=== PATIENT | female | born 1960 | race Caucasian/White ===

== ENCOUNTER 2021-04-10 05:34 | Day surgery (SDC) | payer BC ==
[2021-04-09 11:42] LABS: BASOPHILS % (AUTO) 0.8 % (0.0-5.0); EOSINOPHILS % (AUTO) 2.5 % (0.0-8.0); HEMATOCRIT 44.5 % (36-48); LYMPHOCYTES % (AUTO) 36.8 % (21.0-51.0); MEAN CORPUSCULAR HEMOGLOBIN 29.9 pg (27.0-33.0); MEAN CORPUSCULAR HGB CONC 32.8 g/dL (32.0-36.0); MEAN CORPUSCULAR VOLUME 91.2 fL (79-99); MONOCYTES % (AUTO) 7.4 % (3.0-13.0); NEUTROPHILS % (AUTO) 52.1 % (40.0-77.0); PLATELET COUNT (AUTO) 177 K/uL (130-400); RED BLOOD CELL COUNT(AUTO) 4.88 MIL/uL (4.00-5.50); RED CELL DISTRIBUTION WIDTH 12.9 % (11.0-15.5); WHITE BLOOD COUNT (AUTO) 4.7 K/uL (4.8-10.8)
[2021-04-09 13:44] VITALS: BP 123/69
[2021-04-10] VITALS (19 sets, daily range): BP systolic 104–154; BP diastolic 58–89
[~2021-04-10] VITALS: Ht 162.6 cm; Wt 77.6 kg
[~2021-04-10 05:34] MED LIST: CYAN-52 PO; HYDR25TA PO; PANT40TA54 PO; URSO300C4 PO; VITAMIN D PO
[2021-04-10] MEDS ORDERED: LACTATED RINGERS 1000ML 1,000 ML IV ONE ×2 (06:58→08:53)
[2021-04-10] MEDS: CEFAZOLIN SODIUM 1 GM VIAL ONE ×2 (07:25→09:18)
[2021-04-10] MEDS ORDERED: KETAMINE 50MG/ML SYRINGE 50 MG/ML DISP.SYRIN IV ONE (08:33)
[2021-04-10] MEDS ORDERED: ROCURONIUM 10MG/1ML SYR 10 MG/ML ML ONE (08:35)
[2021-04-10] MEDS ORDERED: LIDOCAINE PF 100MG/5ML (2%) SYRINGE 5ML ONE (08:35)
[2021-04-10] MEDS ORDERED: PROPOFOL 10 MG/ML 20ML VIAL IV ONE (08:35)
[2021-04-10] MEDS ORDERED: MIDAZOLAM HCL 1 MG/ML 2ML VIAL ONE (08:58)
[2021-04-10] MEDS ORDERED: GLYCOPYRROLATE 1 MG/5 ML SYRINGE ONE (09:05)
[2021-04-10] MEDS ORDERED: SUCCINYLCHOLINE 200MG/10ML SYR ONE (09:06)
[2021-04-10] MEDS ORDERED: DEXAMETHASONE SOD PHOSPHATE 10MG/ML 1ML VIAL ONE ×2 (09:09→09:11)
[2021-04-10] MEDS ORDERED: ALBUTEROL INHALER 90MCG/INH IH ONE (10:14)
[2021-04-10] MEDS ORDERED: NEOSTIGMINE 5MG/5ML SYR IV ONE (10:46)
[2021-04-10] MEDS ORDERED: KETOROLAC 30MG VIAL (30MG/ML) ONE (10:50)
[2021-04-10] MEDS ORDERED: ONDANSETRON 4MG INJ ONE (11:02)
[2021-04-10] MEDS ORDERED: MEPERIDINE-PF 25 MG/ML SYG ONE (11:28)
[2021-04-10] MEDS ORDERED: IPRATROPIUM/ALBUTEROL SULFATE 3 ML SOLUTION IH ONE (11:38)
== END 2021-04-10 13:30 | disposition home or self-care (01) ==
LOC: DAH 05:34
PROVIDERS: ATTEND Obstetrics & Gynecology
DX: N95.0 Postmenopausal bleeding (principal); R10.2 Pelvic and perineal pain; N73.6 Female pelvic peritoneal adhesions (postinfective); D36.7 Benign neoplasm of other specified sites; N83.209 Unspecified ovarian cyst, unspecified side; R19.00 Intra-abdominal and pelvic swelling, mass and lump, unspecified site; K21.9 Gastro-esophageal reflux disease without esophagitis; Z87.891 Personal history of nicotine dependence; I10 Essential (primary) hypertension; Z88.1 Allergy status to other antibiotic agents; Z88.5 Allergy status to narcotic agent; Z88.8 Allergy status to other drugs, medicaments and biological substances; Z20.822 Contact with and (suspected) exposure to COVID-19
CPT/HCPCS: 36415; 58120; 58545; 85025; 86850; 86900; 86901; 87635; 94640; A4215 ×3; A4221; A4222; A4223; A4344; A4351; A4600; A4606 ×2; A4649 ×3; A4663; A6260; C1769 ×3; C9803; J0330; J0690; J1100 ×2; J1885; J2001; J2175; J2250; J2405; J2704; J2710; J3490 ×2; J7030; J7120 ×3